=== PATIENT | female | born 2005 | race Caucasian/White ===

== ENCOUNTER 2025-07-31 17:08 | Emergency (ER) | payer OTHER ==
[~2025-07-31] VITALS: Ht 160 cm; Wt 65.9 kg
[2025-07-31 17:59] LABS: COVID AG,FIA SOURCE NASAL SWAB
[2025-07-31 18:20] LABS: INFLUENZA TYPE A NEGATIVE FOR TYPE A (NEGATIVE); INFLUENZA TYPE B NEGATIVE FOR TYPE B (NEGATIVE); SARS-COV2 (COVID) ANTIGEN,FIA Negative (Negative)
[2025-07-31] MEDS: ONDANSETRON 4 MG TABLET PO ONE (19:51)
[2025-07-31 20:00] VITALS: BP 119/65; PULSE 84; RESP 18; TEMP 98.3; O2SAT 100
[2025-08-01] MEDS ORDERED: ONDA-104 PO (18:05)
== END 2025-07-31 21:52 | disposition home or self-care (01) ==
LOC: EMS 17:08
DX: A08.4 Viral intestinal infection, unspecified (principal); F12.90 Cannabis use, unspecified, uncomplicated; Z20.822 Contact with and (suspected) exposure to COVID-19
CPT/HCPCS: 99283; 87426; 87804; Q0162

== ENCOUNTER 2025-08-01 11:27 | Emergency (ER) | payer OTHER ==
[~2025-08-01] VITALS: Ht 160 cm; Wt 66.4 kg
[2025-08-01 11:35] VITALS: TEMP 99.5
[2025-08-01] MEDS: ONDANSETRON 4 MG TABLET PO ONE (12:32)
[2025-08-01 13:54] LABS: PLATELET COUNT (AUTO) 319 K/uL (150-450); RED BLOOD CELL COUNT(AUTO) 4.36 MIL/uL (4.00-5.20); RED CELL DISTRIBUTION WIDTH 12.9 % (11.5-14.5); WHITE BLOOD COUNT (AUTO) 16.4 K/uL (4.5-11.0)
[2025-08-01 14:02] LABS: CALCIUM, TOTAL 9.5 mg/dL (8.8-10.5); CREATININE 0.70 mg/dL (0.60-1.30); GLOMERULAR FILTR. RATE CALC > 60 mL/min (>60); GLUCOSE,RANDOM 92 mg/dL (70-110); SODIUM SERUM 141 mmol/L (136-145); UREA NITROGEN, BLOOD 8 mg/dL (7-18)
[2025-08-01] MEDS: SODIUM CHLORIDE 0.9% 1,000 ML IV ONE (14:30)
[2025-08-01] MEDS ORDERED: SODIUM CHLORIDE 0.9% 100 ML ONE (15:40)
[2025-08-01] MEDS ORDERED: IOHEXOL 300 MG/ML 100 ML VIAL ONE (15:40)
[2025-08-01] MEDS ORDERED: 0.9% SODIUM CHLORIDE 10 ML SYRINGE IVP ONE (15:40)
[2025-08-01] MEDS ORDERED: ONDA-104 PO (18:05)
[2025-08-01] MEDS: MORPHINE SULFATE 2 MG/ML SYRINGE IVP ONE (18:10)
[2025-08-01] MEDS: DICYCLOMINE HCL 20 MG TABLET PO ONE (18:12)
[2025-08-01 19:08] VITALS: BP 114/76; PULSE 90; RESP 18; O2SAT 98
== END 2025-08-01 19:18 | disposition home or self-care (01) ==
LOC: EMS 11:27
DX: A08.4 Viral intestinal infection, unspecified (principal); E86.0 Dehydration; F12.90 Cannabis use, unspecified, uncomplicated; R10.84 Generalized abdominal pain; R11.2 Nausea with vomiting, unspecified; J02.9 Acute pharyngitis, unspecified; R05.9 Cough, unspecified
CPT/HCPCS: 99285; 74177; 96374; 96361; 80048; 84703; 85025; 36415; J2270; Q0162; J7030; J7050; Q9967

== ENCOUNTER 2025-08-13 23:58 | Emergency (ER) | payer OTHER ==
[~2025-08-13] VITALS: Ht 160 cm; Wt 69.5 kg
[~2025-08-13 23:58] MED LIST: ONDA-104 PO
[2025-08-14 00:59] LABS: PLATELET COUNT (AUTO) 394 K/uL (150-450); RED BLOOD CELL COUNT(AUTO) 3.80 MIL/uL (4.00-5.20); RED CELL DISTRIBUTION WIDTH 12.8 % (11.5-14.5); WHITE BLOOD COUNT (AUTO) 13.3 K/uL (4.5-11.0)
[2025-08-14 01:18] LABS: ASPARTATE AMINOTRANSFERASE 16 U/L (15-37); HCG,QUANTITATIVE < 1 mIU/mL (0-6); TOTAL PROTEIN, SERUM 7.4 g/dL (6.4-8.2)
[2025-08-14 01:27] LABS: CALCIUM, TOTAL 8.8 mg/dL (8.8-10.5); CREATININE 0.63 mg/dL (0.60-1.30); GLOMERULAR FILTR. RATE CALC > 60 mL/min (>60); GLUCOSE,RANDOM 99 mg/dL (70-110); SODIUM SERUM 140 mmol/L (136-145); UREA NITROGEN, BLOOD 6 mg/dL (7-18)
[2025-08-14 01:34] LABS: APPEARANCE,URINE CLEAR (CLEAR); GLUCOSE, URINE (UA) NEGATIVE (NEGATIVE); LEUKOCYTE ESTERASE ,URINE TRACE (NEGATIVE); NITRATE,URINE NEGATIVE (NEGATIVE); OCCULT BLOOD,URINE LARGE (NEGATIVE); SPECIFIC GRAVITIY, URINE 1.005 (1.003-1.030)
[2025-08-14 02:07] LABS: SQUAMOUS EPITHELIAL CELL,UR Few /LPF (None Seen); URINALYSIS COMMENT Rare Trich. seen.
[2025-08-14] MEDS: FentaNYL CITRATE PF 100 MCG/2 ML VIAL IVP ONE (06:08)
[2025-08-14 06:19] LABS: PLATELET COUNT (AUTO) 393 K/uL (150-450); RED BLOOD CELL COUNT(AUTO) 3.83 MIL/uL (4.00-5.20); RED CELL DISTRIBUTION WIDTH 12.7 % (11.5-14.5); WHITE BLOOD COUNT (AUTO) 11.5 K/uL (4.5-11.0)
[2025-08-14 06:58] VITALS: BP 105/64; PULSE 78; RESP 18; O2SAT 98
[2025-08-14] MEDS ORDERED: METR500 PO (07:43)
[2025-08-14] MEDS ORDERED: TRAM50TA5 PO (07:43)
== END 2025-08-14 08:10 | disposition home or self-care (01) ==
LOC: EMS 23:58
DX: N83.201 Unspecified ovarian cyst, right side (principal); A59.9 Trichomoniasis, unspecified; N89.8 Other specified noninflammatory disorders of vagina; F12.90 Cannabis use, unspecified, uncomplicated; Z79.899 Other long term (current) drug therapy
CPT/HCPCS: 99285; 80048; 80076; 81001; 83690; 84702; 85025; 87086; 36415; 74176; 96374; 76856; J3010